=== PATIENT | female | born 1960 | race Caucasian/White ===

== ENCOUNTER 2022-01-03 07:01 | Emergency (ER) | payer BC, OTHER ==
[~2022-01-03] VITALS: Ht 162.6 cm; Wt 56.8 kg
[~2022-01-03 07:01] MED LIST: NO HISTORICAL MEDS
[2022-01-03 10:45] VITALS: BP 143/92
== END 2022-01-03 10:51 | disposition home or self-care (01) ==
LOC: M ED 07:01
DX: K40.90 Unilateral inguinal hernia, without obstruction or gangrene, not specified as recurrent (principal); F17.200 Nicotine dependence, unspecified, uncomplicated

== ENCOUNTER → 2023-06-06 | Outpatient (CLI) | payer OTHER ==
[2023-06-06 14:06] LABS: BASO # 0.1 10^3/uL (0.0-0.2); BASO % 0.7 % (0.0-1.0); EOS # 0.1 10^3/uL (0.0-0.5); EOS % 0.5 % (0.0-3.0); HEMATOCRIT 51.9 % (36.0-47.0); HEMOGLOBIN 16.8 g/dl (12.0-15.5); LYMPH # 1.9 10^3/uL (1.5-5.0); LYMPH % 19.4 % (24.0-44.0); MEAN CORPUSCULAR HEMOGLOBIN 31.8 pg (27.0-33.0); MEAN CORPUSCULAR HGB CONC 32.4 g/dl (32.0-36.5); MEAN CORPUSCULAR VOLUME 98.1 fl (80.0-96.0); MONO # 0.5 10^3/uL (0.0-0.8); MONO % 5.4 % (2.0-8.0); NEUTROPHILS # 7.1 10^3/uL (1.5-8.5); NEUTROPHILS % 73.4 % (36.0-66.0); PLATELET COUNT, AUTOMATED 197 10^3/uL (150-450); RED BLOOD COUNT 5.29 10^6/uL (4.00-5.40); WHITE BLOOD COUNT 9.7 10^3/uL (4.0-10.0)
[2023-06-06 14:16] LABS: ERYTHROCYTE SEDIMENTATION RATE 32 mm/hr (0-30)
[2023-06-06 14:18] LABS: C REACTIVE PROTEIN QUANTITATIV < 0.40 MG/DL (<1.0)
[2023-06-06 14:24] LABS: ALBUMIN 4.1 G/DL (3.2-5.2); ALKALINE PHOSPHATASE 80 U/L (46-116); ALT/SGPT 12 U/L (7.0-40); AST/SGOT 14 U/L (<34); BILIRUBIN,TOTAL 0.5 MG/DL (0.3-1.2); BLOOD UREA NITROGEN 16 MG/DL (9-23); CALCIUM LEVEL 9.6 MG/DL (8.3-10.6); CARBON DIOXIDE LEVEL 30 MMOL/L (20-31); CHLORIDE LEVEL 104 MMOL/L (98-107); CHOLESTEROL LEVEL 224 MG/DL (<200); CHOLESTEROL RISK RATIO 3.67 (<5); CREATININE FOR GFR 0.78 MG/DL (0.55-1.30); GLOMERULAR FILTRATION RATE > 60.0 (>45); GLUCOSE, FASTING 81 MG/DL (74-106); HDL CHOLESTEROL 60.9 MG/DL (>40); LDL CHOLESTEROL 133.7 MG/DL (<100); NON-HDL-C 163.1 MG/DL; POTASSIUM SERUM 4.4 MMOL/L (3.5-5.1); SODIUM LEVEL 140 MMOL/L (136-145); TRIGLYCERIDES LEVEL 147 MG/DL (<150)
[2023-06-06 14:40] LABS: HEMOGLOBIN A1c 5.2 % (4.0-6.0)
== END ==
LOC: M LAB 12:37
PROVIDERS: ATTEND Physician Assistant
DX: H53.2 Diplopia (principal)

== ENCOUNTER 2023-06-25 11:56 | Emergency (ER) | payer OTHER ==
[~2023-06-25] VITALS: Ht 160 cm; Wt 68.4 kg
[2023-06-25 15:46] LABS: BASO # 0.1 10^3/uL (0.0-0.2); BASO % 0.6 % (0.0-1.0); EOS # 0.1 10^3/uL (0.0-0.5); EOS % 1.6 % (0.0-3.0); HEMATOCRIT 49.2 % (36.0-47.0); HEMOGLOBIN 16.2 g/dl (12.0-15.5); LYMPH # 2.9 10^3/uL (1.5-5.0); LYMPH % 33.1 % (24.0-44.0); MEAN CORPUSCULAR HEMOGLOBIN 31.8 pg (27.0-33.0); MEAN CORPUSCULAR HGB CONC 32.9 g/dl (32.0-36.5); MEAN CORPUSCULAR VOLUME 96.5 fl (80.0-96.0); MONO # 0.5 10^3/uL (0.0-0.8); NEUTROPHILS # 5.2 10^3/uL (1.5-8.5); NEUTROPHILS % 58.4 % (36.0-66.0); PLATELET COUNT, AUTOMATED 182 10^3/uL (150-450); WHITE BLOOD COUNT 8.8 10^3/uL (4.0-10.0)
[2023-06-25] MEDS ORDERED: LR 1,000 ML IV SCH (18:30)
[2023-06-25] MEDS ORDERED: LR 1,000 ML IV ONE (18:40)
[2023-06-25 20:32] VITALS: BP 175/84; TEMP 98.2; O2SAT 95
== END 2023-06-25 22:31 | disposition short-term general hospital (02) ==
LOC: M ED 11:56
DX: I72.0 Aneurysm of carotid artery (principal); H53.2 Diplopia; F17.200 Nicotine dependence, unspecified, uncomplicated

== ENCOUNTER 2023-07-15 13:59 | Emergency (ER) | payer OTHER ==
[~2023-07-15] VITALS: Ht 162.6 cm; Wt 67.5 kg
[2023-07-15] MEDS ORDERED: ACET-683 PO (14:07)
[2023-07-15] MEDS ORDERED: METH4PACK PO (14:07)
[2023-07-15 15:15] LABS: BASO % 0.3 % (0.0-1.0); EOS # 0.2 10^3/uL (0.0-0.5); EOS % 1.3 % (0.0-3.0); HEMATOCRIT 49.5 % (36.0-47.0); HEMOGLOBIN 16.6 g/dl (12.0-15.5); LYMPH # 1.8 10^3/uL (1.5-5.0); LYMPH % 14.8 % (24.0-44.0); MEAN CORPUSCULAR HGB CONC 33.5 g/dl (32.0-36.5); MEAN CORPUSCULAR VOLUME 95.4 fl (80.0-96.0); MONO # 0.9 10^3/uL (0.0-0.8); MONO % 7.4 % (2.0-8.0); NEUTROPHILS % 75.4 % (36.0-66.0); PLATELET COUNT, AUTOMATED 220 10^3/uL (150-450); RED BLOOD COUNT 5.19 10^6/uL (4.00-5.40); WHITE BLOOD COUNT 11.9 10^3/uL (4.0-10.0)
[2023-07-15] MEDS ORDERED: ONDANSETRON 4MG 2ML VIAL IV ONE (15:15)
[2023-07-15] MEDS ORDERED: MORPHINE 2 MG/ML 1ML VIAL IV PRN (15:20)
[2023-07-15 15:32] LABS: INR 0.92; PROTHROMBIN TIME 12.1 SECONDS (12.5-14.5)
[2023-07-15 15:33] LABS: PARTIAL THROMBOPLASTIN TIME 27.9 SECONDS (24.8-34.2)
[2023-07-15 15:53] LABS: ALBUMIN 3.7 G/DL (3.2-5.2); ALKALINE PHOSPHATASE 84 U/L (46-116); ALT/SGPT 15 U/L (7.0-40); AST/SGOT 14 U/L (<34); BILIRUBIN,DIRECT 0.2 MG/DL (<0.4); BILIRUBIN,TOTAL 0.6 MG/DL (0.3-1.2); BLOOD UREA NITROGEN 19 MG/DL (9-23); CALCIUM LEVEL 9.2 MG/DL (8.3-10.6); CARBON DIOXIDE LEVEL 26 MMOL/L (20-31); CHLORIDE LEVEL 104 MMOL/L (98-107); CREATININE FOR GFR 0.72 MG/DL (0.55-1.30); GLOMERULAR FILTRATION RATE > 60.0 (>45); GLUCOSE, FASTING 98 MG/DL (74-106); POTASSIUM SERUM 4.4 MMOL/L (3.5-5.1); SODIUM LEVEL 137 MMOL/L (136-145); TOTAL PROTEIN 6.5 G/DL (5.7-8.2)
[2023-07-15] MEDS ORDERED: ISOVUE-370 76% 100ML VIAL As Ordered ONE (16:10)
[2023-07-15 16:17] LABS: RSV AMPLIFICATION NEGATIVE (NEGATIVE)
[2023-07-15] MEDS ORDERED: dexAMETHasone 20MG/5ML VIAL IV ONE (16:55)
[2023-07-15] MEDS ORDERED: MORPHINE 4 MG/ML 1ML VIAL As Ordered ONE (17:02)
[2023-07-15] MEDS ORDERED: MORPHINE 4 MG/ML 1ML VIAL IV ONE (17:05)
[2023-07-15] MEDS ORDERED: GABAPENTIN 300 MG CAP PO ONE (21:00)
[2023-07-15] MEDS ORDERED: NEUR100C PO (23:12)
[2023-07-15] MEDS ORDERED: PERC5TAB12 PO (23:12)
[2023-07-15] MEDS ORDERED: DEXA4TA PO (23:12)
[2023-07-15] MEDS ORDERED: OXYCODONE/APAP 5MG/325MG(HOME DOSE PACK) PO ONE (23:15)
[2023-07-16] VITALS: BP 142/87
[2023-07-16 00:01] VITALS: TEMP 98.5; O2SAT 94
== END 2023-07-16 00:27 | disposition home or self-care (01) ==
LOC: M ED 13:59
DX: R51.9 Headache, unspecified (principal); F17.200 Nicotine dependence, unspecified, uncomplicated; Z95.828 Presence of other vascular implants and grafts
CPT/HCPCS: 36415; 70450; 70496; 70498; 70551; 71045; 80047; 80048; 80076; 85025; 85610; 85730; 86850; 86900; 86901; 87631; 93005; 93041; 94760; 96374; 96375; 96376; 99285; J1100; J2405; Q9967

== ENCOUNTER → 2024-07-30 | Outpatient (CLI) | payer OTHER ==
[~2024-07-30] MED LIST changes: +ACET-683 PO; +DEXA4TA PO; +METH4PACK PO; +NEUR100C PO; +PERC5TAB12 PO
[2024-07-30 16:14] LABS: BLOOD UREA NITROGEN 23 MG/DL (9-23); CREATININE FOR GFR 0.96 MG/DL (0.55-1.30); GLOMERULAR FILTRATION RATE > 60.0 (>45)
== END ==
LOC: M PLALAB 10:04
PROVIDERS: ATTEND Nurse Practitioner Adult Health
DX: I67.1 Cerebral aneurysm, nonruptured (principal)

== ENCOUNTER → 2024-08-02 | Outpatient (CLI) | payer OTHER ==
[~2024-08-02] MED LIST changes: +ISOVUE-370 76% 100ML VIAL ONE
== END ==
LOC: M PLAIMG 11:33
PROVIDERS: ATTEND Nurse Practitioner Adult Health
DX: I67.1 Cerebral aneurysm, nonruptured (principal)